=== PATIENT | female | born 1960 | race African-American/Black ===

== ENCOUNTER 2017-05-01 11:47 | Day surgery (SDC) | payer BC ==
[2017-04-30 09:05] VITALS: BMI 49.1
[2017-05-01] MEDS ORDERED: Propofol 200 MG/20 ML VIAL ONE (16:58)
[2017-05-01] MEDS ORDERED: Lidocaine 1% PF 5 ML VIAL ONE (16:58)
--- NOTE | 2017-05-02 08:21 | OP ---
DATE OF PROCEDURE: 05/01/2017 SURGEON: Mariam Alford M.D. PROCEDURE: Colonoscopy with snare polypectomy. PREOPERATIVE DIAGNOSIS: Average risk colon cancer screening. POSTOPERATIVE DIAGNOSES: 1. Exam to cecum; good bowel preparation. 2. Diminutive polyp in the proximal transverse colon, removed by cold snare technique. 3. Three diminutive polyps in the sigmoid and rectosigmoid colon, removed by cold snare technique. 4. Small internal hemorrhoids. 5. Otherwise normal colonoscopy. PROCEDURE IN DETAIL: Written informed consent was obtained. The patient was brought to the endoscop y suite. Total intravenous anesthesia was provided by Dr. [facility]. The patient was placed in the left lateral decubitus position. A digital rectal exam was performed that was unr emarkable. A Pentax video colonoscope was inserted through the anal canal and advanced under direct visualization to the cecum. Position in the cecum was verified by clear identification of the append iceal orifice and the ileocecal valve. The quality of the bowel preparation was good. Each colon se gment was examined carefully as the colonoscope was slowly withdrawn from the cecum. Vascular patter n and haustral folds appeared normal. No vascular ectasias were seen. In the proximal transverse co annie, a 3 mm sessile polyp was identified and removed by cold snare technique. Three additional polyp s, also diminutive, ranging in size from 2-3 mm were identified in the sigmoid and rectosigmoid colon . Each polyp was removed by cold snare technique and the polyp tissue was submitted for histology. Retroflexed exam in the rectum demonstrated small internal hemorrhoids. There were no other signific ant findings. The colon was decompressed as the colonoscope was removed from the patient. She was t ransferred to the day stay surgery area for post-procedure monitoring. There were no immediate compl ications. RECOMMENDATIONS: 1. Resume previous diet and medications. 2. Await pathology results. 3. Ask the patient to call me in 1 week for pathology results. 4. Date of repeat colonoscopy pending review of pathology results. 5. Follow up with Gastroenterology as needed.
== END 2017-05-01 16:05 | disposition home or self-care (01) ==
LOC: SDC 11:47
PROVIDERS: ATTEND Internal Medicine Gastroenterology
PROC: 0DBN8ZX Excision of Sigmoid Colon, Via Natural or Artificial Opening Endoscopic, Diagnostic (ICD-10-PCS; principal; 2017-05-01)
PROC: 0DBL8ZX Excision of Transverse Colon, Via Natural or Artificial Opening Endoscopic, Diagnostic (ICD-10-PCS; principal; 2017-05-01)
DX: Z12.11 Encounter for screening for malignant neoplasm of colon (principal); D12.3 Benign neoplasm of transverse colon; K63.5 Polyp of colon; K64.8 Other hemorrhoids; Z79.82 Long term (current) use of aspirin; Z79.84 Long term (current) use of oral hypoglycemic drugs; Z79.899 Other long term (current) drug therapy; Z90.49 Acquired absence of other specified parts of digestive tract; Z90.710 Acquired absence of both cervix and uterus; Z98.890 Other specified postprocedural states
CPT/HCPCS: 88305; J2001; J2704

== ENCOUNTER 2018-02-18 11:16 | Outpatient (CLI) | payer BC | END 2018-02-18 11:17 | disposition home or self-care (01) | LOC: BICMAMMO 11:16 | PROVIDERS: ATTEND Internal Medicine | DX: Z12.31 Encounter for screening mammogram for malignant neoplasm of breast (principal); Z80.3 Family history of malignant neoplasm of breast | CPT/HCPCS: 77063; 77067 ==

== ENCOUNTER 2019-02-18 08:07 | Outpatient (CLI) | payer BC ==
--- NOTE | 2019-02-18 08:52 | MMO ---
Bilateral MAMMO Bilat Screen [facility]. CLINICAL HISTORY: Patient is 58 years old and is seen for screening. The patient has no family history of breast cancer. The patient has no personal history of cancer. VIEWS: The views performed were: bilateral craniocaudal with tomosynthesis and bilateral mediolateral oblique with tomosynthesis. FILMS COMPARED: The present examination has been compared to prior imaging studies performed at [facility] on 09/22/2014, 12/20/2015, 12/20/2016 and 02/18/2018. This study has been interpreted with the assistance of computer-aided detection. MAMMOGRAM FINDINGS: There are scattered fibroglandular densities. There are no suspicious masses, suspicious calcifications, or new areas of architectural distortion. IMPRESSION: THERE IS NO MAMMOGRAPHIC EVIDENCE OF MALIGNANCY. A ROUTINE FOLLOW-UP MAMMOGRAM IN 1 YEAR IS RECOMMENDED. THE RESULTS OF THIS EXAM WERE SENT TO THE PATIENT. ACR BI-RADS Category 1 - Negative MAMMOGRAPHY NOTE: 1. A negative mammogram report should not delay a biopsy if a dominant of clinically suspicious mass is present. 2. Approximately 10% to 15% of breast cancers are not detected by mammography. 3. Adenosis and dense breasts may obscure an underlying neoplasm. Reported by: MABLE GREEN MD Electonically Signed: [id number]
== END 2019-02-18 08:08 | disposition home or self-care (01) ==
LOC: BICMAMMO 08:07
PROVIDERS: ATTEND Internal Medicine
DX: Z12.31 Encounter for screening mammogram for malignant neoplasm of breast (principal)
CPT/HCPCS: 77063; 77067

== ENCOUNTER 2020-03-21 08:03 | Outpatient (CLI) | payer BC ==
--- NOTE | 2020-03-21 09:28 | MMO ---
Bilateral MAMMO Bilat Screen [facility]. CLINICAL HISTORY: Patient is 59 years old and is seen for screening. The patient has no family history of breast cancer. The patient has no personal history of cancer. VIEWS: The views performed were: bilateral craniocaudal with tomosynthesis and bilateral mediolateral oblique with tomosynthesis. FILMS COMPARED: The present examination has been compared to prior imaging studies performed at [facility] on 12/20/2015, 12/20/2016, 02/18/2018 and 02/18/2019. This study has been interpreted with the assistance of computer-aided detection. MAMMOGRAM FINDINGS: There are scattered fibroglandular densities. There are no suspicious masses, suspicious calcifications, or new areas of architectural distortion. IMPRESSION: THERE IS NO MAMMOGRAPHIC EVIDENCE OF MALIGNANCY. A ROUTINE FOLLOW-UP MAMMOGRAM IN 1 YEAR IS RECOMMENDED. THE RESULTS OF THIS EXAM WERE SENT TO THE PATIENT. ACR BI-RADS Category 1 - Negative MAMMOGRAPHY NOTE: 1. A negative mammogram report should not delay a biopsy if a dominant of clinically suspicious mass is present. 2. Approximately 10% to 15% of breast cancers are not detected by mammography. 3. Adenosis and dense breasts may obscure an underlying neoplasm. Reported by: RODNEY STAFFORD MD Electonically Signed: [id number]
== END 2020-03-21 08:04 | disposition home or self-care (01) ==
LOC: BICMAMMO 08:03
PROVIDERS: ATTEND Internal Medicine
DX: Z12.31 Encounter for screening mammogram for malignant neoplasm of breast (principal)
CPT/HCPCS: 77063; 77067

== ENCOUNTER 2021-10-11 09:44 | Outpatient (CLI) | payer OTHER | END 2021-10-11 09:45 | disposition home or self-care (01) | LOC: BICMAMMO 09:44 | PROVIDERS: ATTEND Internal Medicine | DX: Z12.31 Encounter for screening mammogram for malignant neoplasm of breast (principal); Z80.3 Family history of malignant neoplasm of breast | CPT/HCPCS: 77063; 77067 ==